=== PATIENT | male | born 1985 | race American Indian/Alaskan Native ===

== ENCOUNTER 2019-04-22 01:43 | Emergency (ER) | payer SELFPAY ==
[2019-04-22 01:53] VITALS: BP 121/48
== END 2019-04-22 04:30 | disposition left against medical advice (07) ==
LOC: ED 01:43
DX: K08.89 Other specified disorders of teeth and supporting structures (principal); Z53.21 Procedure and treatment not carried out due to patient leaving prior to being seen by health care provider